=== PATIENT | female | born 1985 | race Caucasian/White ===

== ENCOUNTER 2016-05-26 08:09 | Emergency (ER) | payer SELFPAY ==
[2016-05-26 08:34] VITALS: BP 110/75
--- NOTE | 2016-05-26 08:43 | UC ---
Hand/Wrist HPI - HPI Summary HPI Summary: The patient comes in today for: 1. Left hand injury: Onset: 2 days ago. Palliative/provocative: Gripping with the middle finger and this leads to pain. Quality: ache Region: Left hand. Severity: 2/10 at rest. 4/10 with making a fist. Time: Constant. Associated symptoms: Event: The patient fell in a parking lot. She landed on her left hand which was behind her. She did not have pain right after the fall, but most of the pain came several hours later. Treatment: She has been icing the hand 20 minutes on and 20 minutes off. She has been taking ibuprofen for it. Numbness of the hand: None. Swelling: present: dorsum of the MP joint of the middle finger. * - History Of Current Complaint Chief Complaint: UCUpperExtremity Stated Complaint: LEFT HAND INJURY WC Time Seen by Provider: 05/26/16 08:37 Hx Obtained From: Patient Hx Last Menstrual Period: 05/25/16 ?: No - Allergies/Home Medications Allergies/Adverse Reactions: Allergies Allergy/AdvReac Type Severity Reaction Status Date / Time No Known Allergies Allergy Verified 05/26/16 08:23 PMH/Surg Hx/FS Hx/Imm Hx Previously Healthy: Yes Endocrine History Of: Denies: Diabetes, Thyroid Disease, Hyperthyroidism, Hypothyroidism, Dyslipidemia Cardiovascular History Of: Denies: Cardiac Disorders, Hypertension, Pacemaker/ICD, Myocardial Infarction , Congestive Heart Failure, Atrial Fibrillation, Deep Vein Thrombosis, Bleeding Disorders Respiratory History Of: Denies: COPD, Asthma, Bronchitis, Pneumonia, Pulmonary Embolism GI/ History Of: Denies: Gastroesophageal Reflux, Ulcer, Gastrointestinal Bleed, Gall Bladder Disease, Kidney Stones, Diverticulitis, Renal Disease, Urosepsis Neurological History Of: Denies: TIA, CVA, Dementia, Seizures, Migraine Psychological History Of: Denies: Anxiety, Depression, Bipolar Disorder, Schizophrenia, Post Traumatic Stress Disorder Cancer History Of: Denies: Lung Cancer, Colorectal Cancer, Breast Cancer, Prostate Cancer, Cervical Cancer Other History Of: Negative For: HIV, Hepatitis B, Hepatitis C, Anticoagulant Therapy - Surgical History Surgical History: Yes Surgery Procedure, Year, and Place: C- SECTION - Family History Known Family History: Positive: Hypertension Negative: Cardiac Disease - Social History Occupation: Employed Full-time Alcohol Use: None Substance Use Type: None Smoking Status (MU): Light Every Day Tobacco Smoker Type: Cigarettes Amount Used/How Often: 6 CIGS PER DAY Household Exposure Type: Cigarettes Review of Systems Constitutional: Negative Skin: Negative Eyes: Negative ENT: Negative Respiratory: Negative Cardiovascular: Negative Gastrointestinal: Negative Genitourinary: Negative Musculoskeletal: Arthralgia, Myalgia All Other Systems Reviewed And Are Negative: Yes Physical Exam Triage Information Reviewed: Yes Appearance: Well-Appearing, No Pain Distress, Well-Nourished Vital Signs: Initial Vital Signs Temp 98.8 F 05/26/16 08:24 Pulse 73 05/26/16 08:24 Resp 18 05/26/16 08:24 BP 110/75 05/26/16 08:24 Pulse Ox 100 05/26/16 08:24 Vital Signs Reviewed: Yes Eyes: Positive: Conjunctiva Clear. Negative: Discharge ENT: Positive: Hearing grossly normal. Negative: Pharyngeal erythema, Nasal congestion, Nasal drainage, TM bulging, TM dull, TM red, Tonsillar swelling, Tonsillar exudate Dental: Negative: Gross Decay/Caries @, Dental Fracture @ Neck: Positive: Supple, Nontender, No Lymphadenopathy. Negative: Nuchal Rigidity Respiratory: Positive: Chest non-tender, Lungs clear, No respiratory distress. Negative: Crackles, Wheezing Cardiovascular: Positive: RRR, No Murmur Abdomen Description: Positive: Nontender, No Organomegaly, Soft. Negative: Distended, Guarding Musculoskeletal: Positive: Strength Intact, ROM Intact, Edema @ - There is slight edema to the dorsum of the hand--mostly at the MP joint of the middle finger. There was tenderness to palpation along the extensor tendon on the dorsum of the hand (left). She is able to fully extend her fingers and make a fist. Neurological: Positive: Alert, Muscle Tone Normal Psychological: Positive: Age Appropriate Behavior, Consolable Skin: Negative: rashes, breakdown Diagnostics - Laboratory Diagnostic Studies Completed/Ordered: IMPRESSION: 1. ANGULATION OF THE FIFTH DIP JOINT WHICH HAS A CHRONIC APPEARANCE. RECOMMEND. CORRELATION WITH SITE OF PAIN. 2. OTHERWISE, NO ACUTE OSSEOUS INJURY. IF SYMPTOMS PERSIST, RECOMMEND REPEAT IMAGING - Radiology No standard instances Xray Interpretation: No Acute Changes Radiology Interpretation Completed By: Radiologist Hand/Wrist Course/Dx - Differential Dx/Diagnosis Differential Diagnosis/HQI/PQRI: Contusion, Sprain, Strain Provider Diagnoses: Finger sprain /tendonitis Left middle finger. Discharge - Discharge Plan Condition: Stable Disposition: HOME Patient Education Materials: Finger Sprain (ED), Tendinitis (ED) Referrals: Divina Cole MD [Primary Care Provider] - 1 Week (Please see your primary care provider in about a week to see how well you are doing. If you get worse, please be seen sooner.)
[2016-05-26] MEDS ORDERED: Ibuprofen TAB* 400 MG PO ONE (08:44)
--- NOTE | 2016-05-26 09:21 | RAD ---
HISTORY: Pain, trauma and COMPARISONS: None VIEWS: 4, Frontal, lateral, and oblique views of the left and FINDINGS: BONE DENSITY: Normal. BONES: There is no displaced fracture. JOINTS: There is angulation of the fifth MP joints. ALIGNMENT: As noted above, there is valgus subluxation of the distal phalanx of the fifth digit at the DIP joint SOFT TISSUES: Unremarkable. OTHER FINDINGS: None. IMPRESSION: 1. ANGULATION OF THE FIFTH DIP JOINT WHICH HAS A CHRONIC APPEARANCE. RECOMMEND CORRELATION WITH SITE OF PAIN. 2. OTHERWISE, NO ACUTE OSSEOUS INJURY. IF SYMPTOMS PERSIST, RECOMMEND REPEAT IMAGING
== END 2016-05-26 09:50 | disposition home or self-care (01) ==
LOC: UCCORT 08:09
DX: S63.638A Sprain of interphalangeal joint of other finger, initial encounter (principal); W18.30XA Fall on same level, unspecified, initial encounter; M77.8 Other enthesopathies, not elsewhere classified; F17.210 Nicotine dependence, cigarettes, uncomplicated
CPT/HCPCS: 99203; A9270-GY; G0463